=== PATIENT | female | born 1990 | race Caucasian/White ===

== ENCOUNTER 2022-05-22 23:23 | Emergency (ER) | payer MEDICARE, OTHER ==
[~2022-05-22] VITALS: Ht 149.9 cm; Wt 63.6 kg
[2022-05-23 01:15] VITALS: BP 122/74
== END 2022-05-23 01:53 | disposition home or self-care (01) ==
LOC: M ED 23:23 → EDBD 23:23 → M ED 05-23 01:53
DX: F43.0 Acute stress reaction (principal); F41.9 Anxiety disorder, unspecified; G80.9 Cerebral palsy, unspecified

== ENCOUNTER 2022-06-11 01:51 | Emergency (ER) | payer MEDICARE, OTHER ==
[2022-06-11 03:00] LABS: HEMATOCRIT 42.1 % (36.0-47.0); HEMOGLOBIN 13.7 g/dl (12.0-15.5); MEAN CORPUSCULAR HEMOGLOBIN 27.6 pg (27.0-33.0); MEAN CORPUSCULAR HGB CONC 32.5 g/dl (32.0-36.5); MEAN CORPUSCULAR VOLUME 84.9 fl (80.0-96.0); PLATELET COUNT, AUTOMATED 503 10^3/uL (150-450); RED BLOOD COUNT 4.96 10^6/uL (4.00-5.40); WHITE BLOOD COUNT 18.7 10^3/uL (4.0-10.0)
[2022-06-11 03:25] LABS: HCG, SERUM QUALITATIVE NEGATIVE (NEGATIVE)
[2022-06-11 03:36] LABS: RSV AMPLIFICATION NEGATIVE (NEGATIVE)
[2022-06-11 03:48] LABS: ACETAMINOPHEN LEVEL < 2.0 UG/ML (10.0-30.0); ALBUMIN 4.2 GM/DL (3.2-5.2); ALT/SGPT 23 U/L (12-78); BILIRUBIN,DIRECT 0.2 MG/DL (0.0-0.2); BILIRUBIN,TOTAL 0.5 MG/DL (0.2-1.0); BLOOD UREA NITROGEN 9 MG/DL (7-18); CALCIUM LEVEL 9.6 MG/DL (8.5-10.1); CARBON DIOXIDE LEVEL 25 MEQ/L (21-32); CHLORIDE LEVEL 108 MEQ/L (98-107); CREATININE FOR GFR 0.79 MG/DL (0.55-1.30); ETHYL ALCOHOL (ETHANOL) < 0.003 % (0.000-0.010); GLOMERULAR FILTRATION RATE > 60.0 (>60); GLUCOSE, FASTING 88 MG/DL (70-100); POTASSIUM SERUM 3.8 MEQ/L (3.5-5.1); SALICYLATE LEVEL < 1.7 MG/DL (5.0-30.0); SODIUM LEVEL 137 MEQ/L (136-145); THYROID STIMULATING HORMONE 0.934 uIU/ML (0.358-3.740)
[2022-06-11] MEDS ORDERED: DOCU250C7 PO (03:53)
[2022-06-11] MEDS ORDERED: QUET1TAB17 PO (03:53)
[2022-06-11] MEDS ORDERED: ZYRT10TA12 PO (03:53)
[2022-06-11] MEDS ORDERED: MED REC COMMENT (03:53)
[2022-06-11] MEDS ORDERED: HOME MED LIST COMPLETE! XX SCH (03:55)
[2022-06-11] MEDS ORDERED: LORazepam 2 MG TAB PO ONE (04:20)
[2022-06-11] MEDS ORDERED: OLANZapine ORAL DISINTEGRATING TAB 5MG PO ONE (05:20)
[2022-06-11 06:54] LABS: AMPHETAMINES LEVEL URINE NEGATIVE (NEGATIVE); BARBITURATES URINE NEGATIVE (NEGATIVE); BENZODIAZEPINES URINE NEGATIVE (NEGATIVE); CANNABINOIDS URINE POSITIVE (NEGATIVE); COCAINE METABOLITE URINE NEGATIVE (NEGATIVE); METHADONE URINE NEGATIVE (NEGATIVE); OPIATES URINE NEGATIVE (NEGATIVE); PHENCYCLIDINE URINE NEGATIVE (NEGATIVE)
[2022-06-11 08:22] LABS: BASO # 0.1 10^3/uL (0.0-0.2); BASO % 0.4 % (0.0-1.0); EOS # 0.1 10^3/uL (0.0-0.5); EOS % 0.4 % (0.0-3.0); HEMATOCRIT 39.2 % (36.0-47.0); HEMOGLOBIN 12.9 g/dl (12.0-15.5); LYMPH # 4.1 10^3/uL (1.5-5.0); LYMPH % 25.1 % (24.0-44.0); MEAN CORPUSCULAR HEMOGLOBIN 27.7 pg (27.0-33.0); MEAN CORPUSCULAR HGB CONC 32.9 g/dl (32.0-36.5); MEAN CORPUSCULAR VOLUME 84.1 fl (80.0-96.0); MONO # 1.3 10^3/uL (0.0-0.8); MONO % 8.1 % (2.0-8.0); NEUTROPHILS # 10.7 10^3/uL (1.5-8.5); NEUTROPHILS % 65.6 % (36.0-66.0); PLATELET COUNT, AUTOMATED 455 10^3/uL (150-450); RED BLOOD COUNT 4.66 10^6/uL (4.00-5.40); WHITE BLOOD COUNT 16.3 10^3/uL (4.0-10.0)
[2022-06-12] MEDS ORDERED: DOCUSATE SOD LIQ 100MG/10ML UDC PO SCH (04:00)
[2022-06-12] MEDS ORDERED: DOCUSATE SODIUM 100MG CAPSULE PO SCH (04:00)
[2022-06-12] MEDS ORDERED: QUEtiapine FUMARATE 25 MG TAB PO SCH (04:00)
[2022-06-12] MEDS ORDERED: CETIRIZINE (ZyrTEC) 10 MG TAB PO SCH (04:00)
[2022-06-12 14:36] VITALS: BP 120/78
== END 2022-06-12 14:52 | disposition home or self-care (01) ==
LOC: EDBD 01:51 → M ED 01:51
DX: F32.A Depression, unspecified (principal); R45.851 Suicidal ideations; Z79.52 Long term (current) use of systemic steroids; Z79.899 Other long term (current) drug therapy

== ENCOUNTER → 2025-06-16 | Outpatient (REF) | payer MEDICARE ==
[~2025-06-16] MED LIST: DOCU250C7 PO; MED REC COMMENT; QUET1TAB17 PO; ZYRT10TA12 PO
[2025-06-16 18:44] LABS: BASO # 0.1 10^3/uL (0.0-0.2); BASO % 0.7 % (0.0-1.0); EOS # 0.2 10^3/uL (0.0-0.5); EOS % 2.0 % (0.0-3.0); LYMPH # 3.9 10^3/uL (1.5-5.0); LYMPH % 34.9 % (24.0-44.0); MONO # 0.9 10^3/uL (0.0-0.8); MONO % 7.9 % (2.0-8.0); NEUTROPHILS # 6.0 10^3/uL (1.5-8.5); NEUTROPHILS % 54.0 % (36.0-66.0); PLATELET COUNT, AUTOMATED 507 10^3/uL (150-450)
[2025-06-16 19:11] LABS: ALT/SGPT 22 U/L (7.0-40); AST/SGOT 21 U/L (<34); CALCIUM LEVEL 8.9 MG/DL (8.5-10.1); CARBON DIOXIDE LEVEL 22 MMOL/L (20-31); CHLORIDE LEVEL 108 MMOL/L (98-107); CHOLESTEROL LEVEL 191 MG/DL (<200); CHOLESTEROL RISK RATIO 4.17 (<5); CREATININE FOR GFR 0.70 MG/DL (0.55-1.30); GLOMERULAR FILTRATION RATE > 90.0 (>60); LDL CHOLESTEROL 108.5 MG/DL (<100); NON-HDL-C 145.3 MG/DL; POTASSIUM SERUM 4.1 MMOL/L (3.5-5.1); SODIUM LEVEL 136 MMOL/L (136-145); TRIGLYCERIDES LEVEL 184 MG/DL (<150)
[2025-06-16 19:13] LABS: ESTIMATED AVERAGE GLUCOSE 111.0 MG/DL (60-110)
== END ==
LOC: M SFHCCLAY 14:56
PROVIDERS: ATTEND Nurse Practitioner Family
DX: G80.0 Spastic quadriplegic cerebral palsy (principal); N92.1 Excessive and frequent menstruation with irregular cycle; F43.29 Adjustment disorder with other symptoms; Z79.899 Other long term (current) drug therapy